=== PATIENT | male | born 1955 | race Caucasian/White ===

== ENCOUNTER 2022-11-27 08:58 | Day surgery (SDC) | payer OTHER ==
[2022-11-25 15:15] LABS: Potassium 4.4 mEq/L (3.5-5.1)
--- NOTE | 2022-11-26 13:38 | EKG ---
Test Date: 2022-11-25 Test Time: 13:59:01 Nurse Care Manager: SERENA MEASUREMENT RESULTS: Intervals: Rate: 78 MA: 168 QRSD: 78 QT: 374 QTc: 426 [place]: P: 55 MA: 168 QRS: 46 T: 63 INTERPRETIVE STATEMENTS: Normal sinus rhythm Normal ECG No previous ECG available for comparison Electronically Signed On 11-26-22 13:37:50 CDT by Morgan Munoz
[2022-11-27] MEDS ORDERED: CEFAZOLIN SODIUM 2 GM/VIAL ONE (09:26)
[2022-11-27] MEDS ORDERED: Ringers Lactate 1,000 ML IV ONE ×3 (09:26→14:44)
[2022-11-27] MEDS ORDERED: FENTANYL CITR 100 MCG/2 ML ONE (09:26)
[2022-11-27] MEDS ORDERED: propofoL 200 MG/20 ML VIAL IV ONE (09:26)
[2022-11-27] MEDS ORDERED: MIDAZOLAM HCL 2 MG/2 ML INJ ONE (09:27)
[2022-11-27] MEDS ORDERED: LIDOCAINE 2% MPF 5 ML VIAL ONE (09:27)
[2022-11-27] MEDS ORDERED: ROCURONIUM 50 MG/5 ML VIAL IV ONE (09:29)
[2022-11-27] MEDS ORDERED: ONDANSETRON 4 MG/2 ML VIAL ONE ×2 (09:29→15:17)
[2022-11-27] MEDS ORDERED: GLYCOPYRROLATE 0.2 MG/ML SYR ONE ×2 (09:30)
[2022-11-27] MEDS ORDERED: NEOSTIGMINE 1 MG/ML -10 ML VIAL ONE (09:32)
[2022-11-27] MEDS ORDERED: BUPIVACAINE 0.25% PF 30 ML VIAL ONE (09:42)
[2022-11-27] MEDS ORDERED: CLINDAMYCIN 600MG/D5W 50 ML IV ONE (10:59)
[2022-11-27] MEDS ORDERED: EPHEDRINE SULF 50 MG/ML VIAL ONE (11:24)
[2022-11-27] MEDS ORDERED: dexAMETHasone 4 MG/ML VIAL ONE (11:36)
--- NOTE | 2022-11-27 12:30 | P.OP ---
Preoperative diagnosis: LEFT inguinal hernia Postoperative diagnosis: LEFT inguinal hernia Primary procedure: Open LEFT Inguinal hernia repair with mesh Anesthesia: GETA + Local Estimated blood loss: <10cc Specimen: hernia sack and contents Findings: indirect inguinal hernia Complications: None Implants: Bard Perfix Medium plug and patch Transferred to: Recovery Room Condition: Good
[2022-11-27] MEDS: HYDROMORPHONE HCL 1 MG/ML INJ ONE ×4 (12:44→13:00)
--- NOTE | 2022-11-27 13:41 | OP ---
Date of Procedure: 11/27/2022 Surgeon: Jeremie Painting MD, Preoperative Diagnosis: Left inguinal hernia. Postoperative Diagnosis: Left inguinal hernia. Procedure Performed: Open left inguinal hernia repair with mesh. Anesthesia: General endotracheal plus local with 0.25% Marcaine. Estimated Blood Loss: Less than 10 cc. Specimen: Hernia sac and contents. Findings: Indirect inguinal hernia and thinning of the external oblique aponeurosis. Complications: None. Implants: Bard PerFix medium plug and patch hernia repair system. Disposition: The patient was transferred to the recovery room in good condition. Procedure In Detail: After informed consent was obtained, the patient was brought to the operating r oom, prepped and draped in the usual sterile fashion after adequate anesthesia was achieved. An area of the left inguinal region was anesthetized with 0.25% Marcaine, sharply incised down through Campe r fat and Michael fascia using a 15 blade. Electrocautery was used to achieve hemostasis at this poin t. Camper fat and Michael fascia after being exposed the external oblique aponeurosis, whic h was opened sharply with a 15 blade. I then opened in its entirety with Metzenbaum scissors, encirc led the spermatic cord and structures. I then dissected the hernia sac, which was quite large with c ontents, predominantly adipose tissue contained within. I circumferentially dissected this free from the medial aspect of the spermatic cord and structures and opened the sac, returned the preperitonea l fat and contents to the normal anatomic position in the peritoneal cavity. I then ligated the sac under direct vision using a 3-0 Vicryl suture and reduced into the preperitoneal space at this point. I then sized a medium PerFix plug and deployed the plug in the preperitoneal space at this point an d opened up in its entirety at this point. I then secured the plug circumferentially around the edge s of the deep inguinal ring using interrupted 2-0 PDS sutures with good apposition of the tissues. I then irrigated the area copiously and sized the hernia patch appropriately securing it to the pubic tubercle on medial side, undersurface of the both the internal oblique aponeurosis and the undersurfa ce of the inguinal ligament on the lateral aspect. The floor of the inguinal canal was somewhat weak and bulgy at this point. The mesh was able to reconstruct this in a tension-free manner. I then se cured the ring as described on the medial and lateral shelving edges and reconstituted the deep ingui nal ring using the same said 2-0 PDS suture. I then trimmed the mesh appropriately. At this point, the area was copiously irrigated again. The external oblique aponeurosis which was thin and alveolar was then reapproximated using a running 3-0 Vicryl suture and the deep dermal plane was closed with the same said interrupted 3-0 Vicryl suture. The skin was then irrigated once again, closed with a 4 -0 Monocryl in a running fashion. Dermabond placed over top. The patient tolerated the procedure we ll without evidence of complication and transferred to PACU in good condition. All counts were corre ct at the end of the case. HERNANDO/GEOVANI Voice ID: [id number] Report ID: [id number]
[2022-11-27] MEDS ORDERED: HYDROCODONE/APAP 10/325 TAB ONE (15:17)
[2022-11-27] MEDS ORDERED: TAMSULOSIN 0.4 MG SR CAP ONE (15:31)
[2022-11-27 15:43] VITALS: BP 136/89; TEMP 96.8; O2SAT 95
== END 2022-11-27 17:15 | disposition home or self-care (01) ==
LOC: OR 08:58
PROVIDERS: ATTEND Surgery
PROC: 0YU60JZ Supplement Left Inguinal Region with Synthetic Substitute, Open Approach (ICD-10-PCS; principal; 2022-11-27 10:30)
DX: K40.90 Unilateral inguinal hernia, without obstruction or gangrene, not specified as recurrent (principal); I10 Essential (primary) hypertension; Z87.891 Personal history of nicotine dependence; Z79.899 Other long term (current) drug therapy; Z88.0 Allergy status to penicillin; Z88.5 Allergy status to narcotic agent; Z80.0 Family history of malignant neoplasm of digestive organs; Z80.3 Family history of malignant neoplasm of breast
CPT/HCPCS: 93005; 80048; 36415; 88302; 49505; J2704; J1100; J2710; J2001; J2250; J3010; J1170 ×2; J2405 ×2; J7120 ×3